=== PATIENT | female | born 1960 | race Caucasian/White ===

== ENCOUNTER → 2018-12-03 | Outpatient (REF) | payer BC | LOC: M SFHCPLAZ 11:41 | PROVIDERS: ATTEND Nurse Practitioner Adult Health | DX: Z01.419 Encounter for gynecological examination (general) (routine) without abnormal findings (principal); N88.8 Other specified noninflammatory disorders of cervix uteri ==

== ENCOUNTER → 2018-12-13 | Outpatient (REF) | payer BC ==
[2018-12-13 21:00] LABS: FREE T4 1.35 NG/DL (0.76-1.46); THYROID STIMULATING HORMONE 0.015 uIU/ML (0.358-3.740)
== END ==
LOC: M SFHCPLAZ 13:39
PROVIDERS: ATTEND Nurse Practitioner Adult Health
DX: R79.89 Other specified abnormal findings of blood chemistry (principal)

== ENCOUNTER → 2021-12-14 | Outpatient (CLI) | payer BC ==
[2021-12-14 15:08] LABS: BILIRUBIN,TOTAL 0.4 MG/DL (0.2-1.0); BLOOD UREA NITROGEN 14 MG/DL (7-18); CALCIUM LEVEL 9.8 MG/DL (8.8-10.2); CARBON DIOXIDE LEVEL 31 MEQ/L (21-32); CHLORIDE LEVEL 106 MEQ/L (98-107); CREATININE FOR GFR 0.84 MG/DL (0.55-1.30); GLOMERULAR FILTRATION RATE > 60.0 (>45); GLUCOSE, FASTING 90 MG/DL (70-100); POTASSIUM SERUM 4.8 MEQ/L (3.5-5.1); SODIUM LEVEL 140 MEQ/L (136-145); TRIGLYCERIDES LEVEL 78 MG/DL (<150)
[2021-12-14 15:09] LABS: ALBUMIN 3.9 GM/DL (3.2-5.2); CHOLESTEROL LEVEL 224 MG/DL (<200); CHOLESTEROL RISK RATIO 3.612 (<5); HDL CHOLESTEROL 62 MG/DL (>40); LDL CHOLESTEROL 146 MG/DL (<100); NON-HDL-C 162 MG/DL; THYROID STIMULATING HORMONE < 0.005 uIU/ML (0.358-3.740); TOTAL 25(OH) VITAMIN D 42.5 NG/ML (30.0-100.0)
[2021-12-14 15:26] LABS: ALT/SGPT 39 U/L (12-78)
== END ==
LOC: M PLALAB 08:16
PROVIDERS: ATTEND Nurse Practitioner Adult Health
DX: Z00.00 Encounter for general adult medical examination without abnormal findings (principal); E55.9 Vitamin D deficiency, unspecified; Z13.220 Encounter for screening for lipoid disorders; Z13.29 Encounter for screening for other suspected endocrine disorder

== ENCOUNTER → 2022-03-17 | Outpatient (CLI) | payer BC | LOC: M WHC 06:56 | PROVIDERS: ATTEND Nurse Practitioner Adult Health | DX: Z12.31 Encounter for screening mammogram for malignant neoplasm of breast (principal) ==

== ENCOUNTER → 2023-02-22 | Outpatient (REF) | payer BC ==
[2023-02-22 14:21] LABS: ALBUMIN 4.2 G/DL (3.2-5.2); ALKALINE PHOSPHATASE 101 U/L (46-116); ALT/SGPT 36 U/L (7.0-40); AST/SGOT 24 U/L (<34); BILIRUBIN,TOTAL 0.6 MG/DL (0.3-1.2); BLOOD UREA NITROGEN 13 MG/DL (9-23); CALCIUM LEVEL 10.2 MG/DL (8.3-10.6); CARBON DIOXIDE LEVEL 29 MMOL/L (20-31); CHLORIDE LEVEL 104 MMOL/L (98-107); CHOLESTEROL LEVEL 236 MG/DL (<200); CHOLESTEROL RISK RATIO 3.47 (<5); GLOMERULAR FILTRATION RATE > 60.0 (>45); GLUCOSE, FASTING 91 MG/DL (74-106); LDL CHOLESTEROL 152.4 MG/DL (<100); POTASSIUM SERUM 4.2 MMOL/L (3.5-5.1); SODIUM LEVEL 137 MMOL/L (136-145); THYROID STIMULATING HORMONE 0.014 uIU/ML (0.55-4.78); TOTAL 25(OH) VITAMIN D 48.8 NG/ML (20.0-100.0); TOTAL PROTEIN 6.8 G/DL (5.7-8.2); TRIGLYCERIDES LEVEL 78 MG/DL (<150)
== END ==
LOC: M SFHCADAM 07:33
PROVIDERS: ATTEND Nurse Practitioner Adult Health
DX: Z00.00 Encounter for general adult medical examination without abnormal findings (principal); Z13.29 Encounter for screening for other suspected endocrine disorder; E55.9 Vitamin D deficiency, unspecified; Z13.220 Encounter for screening for lipoid disorders

== ENCOUNTER → 2023-02-26 | Outpatient (REF) | payer BC | LOC: M SFHCPLAZ 12:56 | PROVIDERS: ATTEND Nurse Practitioner Adult Health | DX: Z01.419 Encounter for gynecological examination (general) (routine) without abnormal findings (principal); Z77.9 Other contact with and (suspected) exposures hazardous to health ==

== ENCOUNTER → 2023-03-20 | Outpatient (CLI) | payer BC | LOC: M WHC 07:23 | PROVIDERS: ATTEND Nurse Practitioner Adult Health | DX: Z12.31 Encounter for screening mammogram for malignant neoplasm of breast (principal) ==